=== PATIENT | male | born 1955 | race Caucasian/White ===

== ENCOUNTER 2018-07-28 11:35 | Outpatient (CLI) | payer OTHER ==
[~2018-07-28] VITALS: Ht 170.2 cm; Wt 62.3 kg
--- NOTE | ~2018-07-28 | HEMODYNAMI ---
PATIENT:BLANCO SAWYER MEDICAL RECORD: [id number] : 55 LOCATION:[facility] ADMISSION DATE: 07/28/18 Generatedon:07/28/201814:45 Patient name: BLANCO SAWYER Patient #: [id number] SSN: DO B: 1955 Date of study: 07/28/2018 Page: Of Hemodynamic Procedure Report Patient Data Patient Demographics Procedure consent was obtained First Name: BLANCO Gender: Male Last Name: DIGNA : 1955 Middle Initial: H Age: 62 year(s) Patient #: [id number] Race: Unknown Additional ID: [id number] Contact details [address]: [address] [place] [address] State: [place] City: [place] Zip code: [address] Admission Admission Data Admission Date: 07/28/2018 Admission Time: 11:35 Admit Source: Other Insurance Payor: Private health insurance Height (in.): 66.93 BSA: 1.72 (m2) Height (cm.): 170 BMI: 21.45 (kg/m2) Weight (lbs.): 136.69 Weight (kg.): 62 Lab Results Lab Result Date: 07/28/2018 Lab Result Time: 0:00 Biochemistry Name Units Result Min Max BUN mg/dl 11 --(-*--)-- 7 18 Creatinine mg/dl 0.6 --(*---)-- 0.6 1.3 CBC Name Units Result Min Max Hemoglobin g/dl 13.4 -*(----)-- 13.5 17.5 Procedure Procedure Types Cath Procedure Diagnostic Procedure [facility] w/Coronaries Procedure Description Procedure Date Procedure Date: 07/28/2018 Procedure Start Time: 14:36 Procedure End Time: 14:45 Procedure Staff Name Function Mushtaq Araujo MD Performing Physician Paz Bro RT Monitor Nenita Cardenas RN Nurse Minor Lorenz RT Scrub Procedure Data Cath Procedure Fluoroscopy Diagnostic fluoroscopy Total fluoroscopy Time: 1.5 time: 1.5 min min Diagnostic fluoroscopy Total fluoroscopy dose: 326 dose: 326 mGy mGy Contrast Material Contrast Material Type Amount (ml) Isovue 300 64 Entry Location Entry Primary Successful Side Size Upsize Upsize Entry Closure [place] ccessful Closure Location (Fr) 1 (Fr) 2 (Fr) Remarks Device Remarks Radial Right 6 Fr Mechanical artery Short Compression Estimated blood loss: 5 ml Diagnostic catheters Device Type Used For End Catheter Placement DIAGNOSTIC [place] 110cm 5 Multi-vessel Fr catheter ([id number]) Angiography Procedure Complications No complications Procedure Medications Medication Administration Route Dosage 0.9% NaCl I.V. 100 ml/hr Oxygen etCO2 Nasal cannula 2 l/min Lidocaine 2% added to field 20 Heparin Flush Bag added to field 2 bags (1000units/500ml NS) Versed I.V. 2 mg Fentanyl I.V. 50 mcg Versed I.V. 1 mg Fentanyl I.V. 25 mcg Hemodynamics Rest BSA: 1.72 (m2) HGB: 13.4 (g/dl) O2 Consumption: Estimated: 193.92 (ml/min) O2 Co nsumption indexed: Estimated:112.74 (ml/min/m) Heart Rate: 58 (bpm) Pressure Samples Time Site Value (mmHg) Purpose Heart Use Rate(bpm) 14:39 LV 152/37,32 Snapshot 70 14:40 AO 78/60(68) Pullback 67 Gradients Valve Time Site Site 2 Mean SEP/DFP Peak To Heart Use 1 (mmHg) (sec/min) Peak Rate (mmHg) (bpm) Aortic 14:40 LV AO 2 5 67 78/60(68) Calculations Valve P-P Mean Valve Index Valve Source Name Gradient Area Flow (cm2) Aortic 2 2 Snapshots Pre Cath Intra NCS Post Cath Vital Signs Time Heart Resp SPO2 etCO2 NIBP (mmHg) Rhythm Pain Sedation Rate (ipm) (%) (mmHg) Status Level (bpm) 14:21:41 50 14 99 21 146/82(137) NSR 0 (11) 10(A) , No pain 14:25:59 54 18 100 30 143/82(129) NSR 0 (11) 10(A) , No pain 14:30:15 60 18 99 28.4 115/77(95) NSR 0 (11) 10(A) , No pain 14:34:25 59 18 96 30 115/70(95) NSR 0 (11) 10(A) , No pain 14:38:33 64 15 98 0 108/72(91) NSR 0 (11) 10(A) , No pain 14:42:43 72 15 97 38.9 88/62(77) NSR 0 (11) 10(A) , No pain Medications Time Medication Route Dose Verified Delivered Reason Notes Eff ectiveness by by 14:23:27 0.9% NaCl I.V. 100 Mushtaq Nenita used for ml/hr [facility] procedure MD HERRING 14:23:34 Oxygen etCO2 2 Mushtaq Nenita used for Nasal l/min [facility] procedure cannula MD HERRING 14:23:40 Lidocaine 2% added 20ml Mushtaq Mushtaq for local to vial [facility] anesthetic field MD [place] 14:23:45 Heparin Flush added 2 Mushtaq Mushtaq used for Bag to bags [facility] procedure (1000units/500ml field MD [place] NS) 14:36:07 Versed I.V. 2 mg Mushtaq Nenita for [facility] sedation MD HERRING 14:36:12 Fentanyl I.V. 50 Mushtaq Nenita for mcg [facility] sedation MD HERRING 14:39:49 Versed I.V. 1 mg Mushtaq Nenita for [facility] sedation MD HERRING 14:39:53 Fentanyl I.V. 25 Mushtaq Nenita for [facility] Ronald sedation MD HERRINGenterprise software developer Log Time Note 13:56:44 Admit Source: Other 13:57:08 Diagnostic Cath status Elective 13:57:10 Minor Lorenz RT(R) sent for patient. Start room use. 13:57:11 Time tracking: Regular hours (M-F 7:00 - 5:00) 13:57:16 Plan of Care:Hemodynamics will remain stable., Cardiac rhythm will remain stable., Comfort level will be maintained., Respiratory function will remain adequate., Patient/ family verbilizes understanding of procedure., Procedure tolerated without complication., Recovers from procedure without complications.. 14:10:21 Patient received from Pre/Post Procedure Room to CCL 1 Alert and oriented. Tansferred to table in Supine position. 14:10:23 Warm blankets applied, and josh hugger turned on for patient comfort. 14:10:23 Correct patient and procedure confirmed by team. 14:10:24 Signed procedure consent form obtained from patient. 14:10:26 ECG and BP/O2 sat monitors applied to patient. 14:13:20 Lab Result : Hemoglobin 13.4 g/dl 14:13:20 Lab Result : Creatinine 0.6 mg/dl 14:13:20 Lab Result : BUN 11 mg/dl 14:13:30 Patient Weight : 136.69 lbs 14:13:33 Patient Height : 66.93 inches 14:13:42 Insurance Payor : Private health insurance 14:16:58 Vital chart was started 14:16:59 Baseline sample Acquired. 14:17:04 Rhythm: sinus rhythm 14:17:09 Full Disclosure recording started 14:23:27 0.9% NaCl 100 ml/hr I.V. was administered by Nenita Cardenas RN; used for procedure; 14:23:34 Oxygen 2 l/min etCO2 Nasal cannula was administered by Nenita Cardenas RN; used for procedure; 14:23:40 Lidocaine 2% 20ml vial added to field was administered by Mushtaq Araujo MD; for local anesthetic; 14:23:45 Heparin Flush Bag (1000units/500ml NS) 2 bags added to field was administered by Mushtaq Araujo MD; used for procedure; 14:26:10 H&P Date Dictated: 07/28/2018 Within 30 days and on chart., H&P Addendum completed by physician on day of procedure. (MUST COMPLETE FOR ALL OUTPATIENTS). 14:26:12 Pre-procedure instructions explained to patient. 14:26:13 Pre-op teaching completed and patient verbalized understanding. 14:26:14 Family in waiting room. 14:26:16 Patient NPO since Midnight. 14:26:18 Is the patient allergic to Iodine/contrast media? No. 14:26:19 Was the patient premedicated? No 14:26:21 Is patient on blood thinner?No 14:26:22 Patient diabetic? No. 14:26:25 Previous problem with sedation/anesthesia? No ? 14:26:27 Snore? Yes 14:26:28 Sleep apnea? Yes 14:26:29 Deviated septum? No 14:26:30 Opens mouth fully? Yes 14:26:31 Sticks out tongue? Yes 14:26:37 Airway obstruction? Yes emphysema 14:26:40 Dentures? No ? 14:26:46 Pre procedure: right dorsailis pedis pulse 2+ Normal; easily identifiable; not easily obliterated 14:26:50 Pre procedure: left dorsailis pedis pulse 2+ Normal; easily identifiable; not easily obliterated 14::53 Patient pain scale 0/10 ?. 14:27:09 IV patent on arrival in left forearm with 0.9% NaCl at [facility]. 14:27:13 Lab results completed and on chart. 14::29 Right Radial & Right Groin area was prepped with chlora-prep and draped in sterile fashion 14::30 Alarms reviewed by R. N. 14::31 Sharps counted by scrub and verified by R.N. 14::32 Baseline sample Acquired. 14::57 Physician arrived 14::57 --------ALL STOP TIME OUT------ 14::58 Final Timeout: patient, procedure, and site verified with staff and physician. All members of the team are in agreement. 14:36:02 Right Radial & Right Groin site verified by team. 14:36:07 Versed 2 mg I.V. was administered by Nenita Cardenas RN; for sedation; 14:36:07 Maximum allowable Isovue 300 dose 300ml. Physician notified. (300ml for normal creatinines. For patients with creatinine of 1.7 or higher multiply weight(kg) x 5 divided by creatinine.) 14:36:12 Fentanyl 50 mcg I.V. was administered by Nenita Cardenas RN; for sedation; 14:36:12 Fire Safety Assessment: A--An alcohol-based skin anteseptic being used preoperatively., C--Open oxygen or nitrous oxide is being used., D--An ESU, laser, or fiber-optic light is being used. 14:36:15 Physical assessment completed. ASA score P 2 - A patient with mild systemic disease as per Mushtaq Araujo MD. 14:36:19 Sedation plan: IV Moderate Sedation Medication:Versed, Fentanyl 14:36:27 Procedure started. 14:36:32 Local anesthetic to right radial artery with Lidocaine 2% by Mushtaq Araujo MD.INITIAL ACCESS ONLY 14:37:08 A 6 Fr Short sheath was inserted into the Right Radial artery 14:37:26 Use device set Radial Dx or PCI 14:37:35 ACIST Syringe (83542) opened to sterile field. 14:37:36 Medline Cath Pack ([id number]) opened to sterile field. 14:37:37 Bag Decanter (2002S) opened to sterile field. 14:37:37 DIAGNOSTIC WIRE .035 260cm J wire (248935) opened to sterile field. 14:37:38 ACIST Hand Control (35179) opened to sterile field. 14:37:38 ACIST Manifold (65301) opened to sterile field. 14:37:39 Tegaderm 4 x 4 (1626W) opened to sterile field. 14:37:39 MBrace Wrist Support ([id number]) opened to sterile field. 14:37:41 SHEATH 6FR Slender (80-3510) opened to sterile field. 14:37:54 A DIAGNOSTIC [place] 110cm 5 Fr catheter (995866) was advanced over the wire and used for Multi-vessel Angiography. 14:38:56 Zero performed for pressure channel P1 14:39:04 Zero performed for pressure channel P1 14:39:49 Versed 1 mg I.V. was administered by Nenita Cardenas RN; for sedation; 14:39:53 Fentanyl 25 mcg I.V. was administered by Nenita Cardenas RN; for sedation; 14:40:01 LV hemodynamics recorded. 14:40:02 LV gram done using MARTINEZ 14:40:04 Injector settings: Ml/sec: 5, Volume: 15, 14:40:27 EF : 55 % 14:40:44 LCA angiography performed. 14:40:47 Injector settings: Ml/sec: 3, Volume: 6, 14:42:24 RCA angiography performed. 14:42:27 Injector settings: Ml/sec: 3, Volume: 6, 14:42:48 Catheter removed. 14:42:53 TR BAND Standard ([id number]) opened to sterile field. 14:43:01 Sheath removed intact; hemostasis achieved with Mechanical Compression to the Right Radial artery. 14:43:13 Procedure ended.(Physican Out) 14:43:45 Fluoroscopy time 01.50 minutes. 14:43:50 Fluoroscopy dose: 326 mGy 14:43:50 Flurop Dose total: 326 14:43:54 Contrast amount:Isovue 300 64ml. 14:43:56 Sharps counted by scrub and verified by R.N. 14:44:00 TR band inflated with 10cc of air. 14:44:03 Insertion/operative site no bleeding no hematoma. 14:44:08 Post right radial artery:stable 14:44:11 Post Procedure Pulses reassessed and unchanged 14:44:15 Post procedure rhythm: unchanged. 14:44:19 Estimated blood loss: 5 ml 14:44:21 Post procedure instruction explained to patient.Patient verbalizes understanding. 14:44:21 Patient needs reinforcement of post procedure teaching. 14:44:50 Procedure and supply charges have been captured, reviewed, submitted and are correct. 14:44:55 Procedure Complication : No complications 14:44:57 Vital chart was stopped 14:44:58 See physician's report for complete and final results. 14:45:02 Report given to Pre/Post Procedure Room. 14:45:05 Patient transfered to Pre/Post Procedure Room with Stretcher. 14:45:09 Procedure ended. 14:45:09 Full Disclosure recording stopped 14:45:12 End room use (Document Last) Device Usage Item Name Manufacture Quantity Catalog Hospital Part Current Minimal Lot# / Number Charge Number Stock Stock Serial# Code ACIST Acist 1 92818 604438 971973 [id number] 20 Syringe Medical (21274) Systems Inc Medline Medline 1 [id number] 731475 27218 899957 5 Cath Pack ([id number]) Bag Microtek 1 2001S 813984 11642 446266 5 Decanter Medical Inc. (2001S) DIAGNOSTIC [place] 1 191533 326667 281512 392174 30 WIRE .035 260cm J wire (914579) ACIST Hand Acist 1 51325 025533 635196 308484 5 Control Medical (73113) Systems Inc ACIST Acist 1 34458 253263 244350 708986 5 Manifold Medical (41155) Systems Inc Tegaderm 4 3M 1 1626W 825233 787649 277925 5 x 4 (1626W) MBrace Advanced 1 140-0250-00 489836 64601 377204 5 Wrist Vascular Support Dynamics (757850047) SHEATH 6FR Terumo 1 [id number] 713073 777210 369252 5 Slender (80-1060) DIAGNOSTIC Terumo 1 40-6052 073722 943022 525708 5 [place] 110cm 5 Fr catheter (381306) TR BAND Terumo 1 [id number] 024569 244632 909289 40 Standard ([id number]) Signature Audit Pandora Stage Time Signature Unsigned Intra-Procedure 07/28/2018 Paz Bro 2:45:47 PM RT(R) Signatures Monitor : Paz Bro RT Signature : Date : Time : [facility] [address] [place] [address]
[~2018-07-28 11:35] MED LIST: ALEVE220 MG PO; ARTHROTEC EC 71 EACH PO; CELEXA10 MG PO; CELEXA20 MG PO; HYDROCODON-ACE1 EAC7 PO
[2018-07-28 12:07] VITALS: BP 118/71; Ht 170.2 cm; Wt 62.3 kg
[2018-07-28 12:26] LABS: BASOPHILS 0.3 % (0-2); EOSINOPHILS 1.3 % (0-7); HEMATOCRIT 37.9 % (42.0-54.0); HEMOGLOBIN 13.4 g/dL (13.5-17.5); IMMATURE GRANULOCYTES 0.3 % (0-5); LYMPHOCYTES 22.7 % (15-50); MCH 31.5 pg (26.0-34.0); MCHC 35.4 g/dL (31.0-37.0); MCV 89.2 fL (80.0-100.0); MONOCYTES 6.3 % (2-11); NEUTROPHILS 69.1 % (40-80); RBC 4.25 10x6/uL (4.20-6.10); WBC 7.5 10x3/uL (4.8-10.8)
[2018-07-28 12:40] LABS: CALC OSMOLALITY 269 mosm/kg (275-300); CALCIUM 8.7 mg/dL (8.5-10.1); CARBON DIOXIDE 25.2 mmol/L (21.0-32.0); CHLORIDE - SERUM 100 mmol/L (98-107); CREATININE - SERUM 0.6 mg/dL (0.6-1.3); GLUCOSE 81 mg/dL (74-106); PLATELET COUNT 211 10x3/uL (130-400); SODIUM 136 mmol/L (136-145); UREA NITROGEN 11 mg/dL (7-18); eGFR NON AFRICAN AMERICAN > 90 mL/min (90-120)
--- NOTE | 2018-07-28 15:10 | NUR ---
PATIENT RESTING, VSS ON 2L NC. RIGHT TR BAND IN PLACE, NO S/S OF BLEEDING OR HEMATOMA. NO C/O PAIN, NUMBNESS, OR TINGLING. NO N/V.
--- NOTE | 2018-07-28 15:40 | NUR ---
PATIENT RESTING, VSS ON 1L NC. INITIATE AIR REMOVAL PROTOCOL FOR TR BAND, SMALL AMOUNT OF BLEEDING NOTED, AIR REPLACED IN TR BAND WITH NO FURTHER S/S OF BLEEDING OR HEMATOMA. WILL CONTINUE TO MONITOR.
--- NOTE | 2018-07-28 16:10 | NUR ---
3CC OF AIR REMOVED FROM RIGHT TR BAND, NO S/S OF BLEEDING OR HEMATOMA. NO C/O PAIN, NUMBNESS, OR TINGLING. PATIENT GIVEN TURKEY SANDWICH AND WATER, NO N/V. VSS ON ROOM AIR. CALLED AND GIVEN UPDATE PER REQUEST OF PATIENT.
--- NOTE | 2018-07-28 16:40 | NUR ---
3CC OF AIR REMOVED FROM TR BAND, NO S/S OF BLEEDING OR HEMATOMA. NO C/O PAIN, NUMBNESS, OR TINGLING. TOLERATING PO FLUIDS AND FOOD, NO N/V. VSS ON ROOM AIR.
--- NOTE | 2018-07-28 17:10 | NUR ---
PATIENT VOIDED PER URINAL WITHOUT DIFFICULTY. VSS ON ROOM AIR. IV REMOVED. AT BEDSIDE. EDUCATION REGARDING DISCHARGE INSTRUCTIONS GIVEN, PATIENT VOICES UNDERSTANDING. TR BAND REMOVED, DRESSING APPLIED. NO S/S OF BLEEDING OR HEMATOMA. NO C/O PAIN, NUMBNESS, OR TINGLING.
--- NOTE | 2018-07-28 17:20 | NUR ---
PATIENT TRANSPORTED VIA WHEELCHAIR TO CAR WITH SPOUSE DRIVING, ALL BELONGINGS WITH PATIENT.
--- NOTE | 2018-07-29 13:17 | OP ---
PATIENT NAME: BLANCO SAWYER MEDICAL RECORD: [id number] :55 LOCATION:D.CAT ADMISSION DATE: SURGEON: SABIHA YEBOAH MD DATE OF OPERATION: 07/28/2018 PROCEDURES: Left heart catheterization, selective coronary angiography, right radial approach. CATHETERS: Radial sheath, [place] catheter. The procedure was well tolerated. The patient returned to the schroeder. Sheath was removed. TR band was placed. FINDINGS: Left ventriculography in 30-degree MARTINEZ view: Normal wall motion and normal systolic function. CORONARY ANATOMY: LEFT MAIN: Left main is free of disease. LAD: Free of disease in the diagonal system. CIRCUMFLEX: Left dominant system, free of disease. RIGHT CORONARY ARTERY: Rudimentary, free of disease. IMPRESSION: Normal left ventricular systolic function and normal coronary anatomy. TRANSINT:[id number] Voice Confirmation ID: [id number] DOCUMENT ID: [id number] SABIHA YEBOAH MD at 1317 CC: [id number] DICTATION DATE: 07/28/18 1449 DEPUTY CHIEF COUNSEL: 07/28/18 1759 DEP CLI 07/28/18 [id number] [place] [address]
--- NOTE | 2018-07-30 13:47 | HP ---
PATIENT: BLANCO SAWYER MEDICAL RECORD: [id number] ACCOUNT: [id number] LOCATION:[facility] : 55 ADMISSION DATE: 07/28/18 PCP: SLOAN SANON DO HISTORY AND PHYSICAL EXAMINATION HISTORY: A 62-year-old gentleman with no known history of coronary artery disease, actually been seen in the office with angina symptomatology. He underwent noninvasive testing; however, has continued to have anginal symptomatology despite medical therapy. He is being brought [facility] definitive diagnosis. PAST MEDICAL HISTORY: No significant past medical history. MEDICATIONS: None currently. ALLERGIES: None known. PHYSICAL EXAMINATION: GENERAL: Pleasant gentleman, in no acute distress. NECK: No JVD or bruit. HEART: Regular. LUNGS: Good air excursion. ABDOMEN: Soft and nontender. EXTREMITIES: Pulse 2+ with no edema. DIAGNOSTIC DATA: ECG without acute change and her stress testing is negative. IMPRESSION: Continued angina despite noninvasive studies. PLAN: Angiography and intervention as indicated. TRANSINT:[id number] Voice Confirmation ID: [id number] DOCUMENT ID: [id number] SABIHA YEBOAH MD at 1347 CC: [id number] DICTATION DATE: 07/29/18 1305 ADMINISTRATIVE SERVICES DIRECTOR: 07/29/18 1413 DEP CLI 07/28/18 [address] [place] [address]
== END 2018-07-28 17:20 ==
LOC: D.CATH 11:35
PROVIDERS: ATTEND Internal Medicine Interventional Cardiology
DX: I20.9 Angina pectoris, unspecified (principal); R06.02 Shortness of breath; Z01.812 Encounter for preprocedural laboratory examination